=== PATIENT | female | born 1980 | race Caucasian/White ===

== ENCOUNTER 2020-05-25 22:25 | Inpatient (IN) | payer MEDICAID, OTHER ==
[~2020-05-25] VITALS: Ht 167.6 cm; Wt 108.9 kg
[2020-05-25] MEDS ORDERED: ASPIRIN 81MG TABLET PO ONE (23:15)
[2020-05-25] MEDS ORDERED: DEXAMETHASONE 4MG/ML 1ML VIAL IV ONE (23:30)
[2020-05-26 00:21] LABS: HEMATOCRIT. 44.3 % (36.0-48.0); HEMOGLOBIN. 14.1 g/dL (12.0-16.0); MEAN CORPUSCULAR VOLUME 78.6 fL (81.0-99.0); MEAN PLATELET VOLUME 8.1 fl (7.4-10.4); PLATELET 232 x1000/uL (130-400); RED BLOOD CELL COUNT 5.64 mill/uL (4.2-5.4); RED CELL DISTRIBUTION WIDTH 16.8 % (11.6-14.6)
[2020-05-26 00:28] LABS: CHLORIDE 99 mEq/L (98-107)
[2020-05-26] MEDS ORDERED: SODIUM CHLORIDE 0.9% 1000ML BAG (SEPSIS BOLUS) IV ONE (01:00)
[2020-05-26] MEDS ORDERED: ASPIRIN 81MG TABLET PO ONE (01:00)
[2020-05-26 01:54] LABS: PARTIAL THROMBOPLASTIN TIME 23.4 sec (23.4-31.0); PROTHROMBIN TIME 10.8 sec (9.6-11.0)
[2020-05-26] MEDS ORDERED: ENOXAPARIN 120MG/0.8ML SYR SUBCUT NR (02:00)
[2020-05-26] MEDS ORDERED: AZITHROMYCIN 500 MG in DEXT 5% WATER 250 ML IV NR (02:00)
[2020-05-26] MEDS ORDERED: CEFTRIAXONE 1 G PREMIX 50 ML IV NR (03:00)
[2020-05-26 03:02] LABS: ATYPICAL LYMPHOCYTES 2; NUCLEATED RED BLOOD CELLS 2 /100 WBC; PLATELET ESTIMATE NORMAL
[2020-05-26] MEDS ORDERED: BENZONATATE 100MG CAPSULE PO PRN (09:00)
[2020-05-26] MEDS ORDERED: ONDANSETRON HCL 4MG/2ML INJ IV PRN (09:00)
[2020-05-26] MEDS: ASPIRIN 81MG TABLET PO SCH (09:00)
[2020-05-26] MEDS: DEXAMETHASONE 4MG/ML 1ML VIAL IV SCH (09:39)
[2020-05-26] MEDS: PIPERACILLIN/TAZOBACTAM 3.375 G in DEXT 5% WATER 100 ML IV SCH ×3 (11:30→21:00)
[2020-05-26] MEDS ORDERED: ALBUTEROL 6.7GM HFA INHALER ORI PRN (19:15)
[2020-05-26] MEDS ORDERED: FUROSEMIDE 20MG/2ML VIAL IVP NR (19:30)
[2020-05-26] MEDS: ENOXAPARIN 30MG/0.3ML SYR SUBCUT SCH (21:00)
[2020-05-26 22:52] LABS: BG BASE EXCESS 2.8 mmol/L (-2.0-2.0); BG CARBOXYHEMOGLOBIN 0.3 % (0.5-1.5); BG DEOXYHEMOGLOBIN 6.2 % (0.0-5.0); BG FRACTION INSPIRED OXYGEN 100; BG HCO3 ACT 25.6 mmol/L (22.0-26.0); BG METHEMOGLOBIN 0.2 % (0.0-1.5); BG OXYGEN SATURATION 93.8 % (92.0-98.5); BG OXYHEMOGLOBIN 93.3 % (94.0-97.0); BG PCO2 33.7 mmHg (35.0-45.0); BG PH 7.498 (7.350-7.450); BG PO2 69.3 mmHg (75.0-100.0); BG TOTAL HEMOGLOBIN 13.3 g/dL (12.0-18.0); BG VENT MODE MASK - NRB
[2020-05-27] MEDS: PIPERACILLIN/TAZOBACTAM 3.375 G in DEXT 5% WATER 100 ML IV SCH ×3 (03:00→21:36)
[2020-05-27 05:28] LABS: BASOPHILS % 0.3 % (0.0-2.0); HEMATOCRIT. 37.6 % (36.0-48.0); HEMOGLOBIN. 12.2 g/dL (12.0-16.0); LYMPHOCYTES % 8.6 % (20.0-50.0); MEAN CORPUSCULAR HEMOGLOBIN 24.8 pg (28.0-32.0); MEAN CORPUSCULAR VOLUME 76.7 fL (81.0-99.0); MEAN PLATELET VOLUME 8.4 fl (7.4-10.4); MONOCYTES % 7.2 % (2.0-8.0); NEUTROPHILS % 83.9 % (40.0-76.0); PLATELET 242 x1000/uL (130-400); RED BLOOD CELL COUNT 4.91 mill/uL (4.2-5.4); RED CELL DISTRIBUTION WIDTH 16.3 % (11.6-14.6)
[2020-05-27 05:37] LABS: CHLORIDE 104 mEq/L (98-107)
[2020-05-27 08:03] LABS: BG BASE EXCESS 5.2 mmol/L (-2.0-2.0); BG CARBOXYHEMOGLOBIN 0.3 % (0.5-1.5); BG DEOXYHEMOGLOBIN 5.8 % (0.0-5.0); BG HCO3 ACT 28.6 mmol/L (22.0-26.0); BG METHEMOGLOBIN 0.3 % (0.0-1.5); BG OXYGEN SATURATION 94.2 % (92.0-98.5); BG OXYHEMOGLOBIN 93.6 % (94.0-97.0); BG PCO2 38.1 mmHg (35.0-45.0); BG PH 7.494 (7.350-7.450); BG PO2 70.6 mmHg (75.0-100.0); BG SAMPLE SITE LEFT RADIAL; BG TOTAL HEMOGLOBIN 13.5 g/dL (12.0-18.0); BG VENT MODE MASK - NRB
[2020-05-27] MEDS ORDERED: DEXTROSE 50% WATER 50ML SYRINGE IV PRN (08:45)
[2020-05-27 10:25] VITALS: BP 143/95
[2020-05-27 12:00] VITALS: BP 153/87
[2020-05-27] MEDS: BLOOD SUGAR DIAGNOSTIC STRIP TEST SCH ×3 (12:40→21:36)
[2020-05-27] MEDS: ASPIRIN 81MG TABLET PO SCH (14:56)
[2020-05-27] MEDS: ENOXAPARIN 30MG/0.3ML SYR SUBCUT SCH ×2 (14:57→21:34)
[2020-05-27] MEDS: DEXAMETHASONE 4MG/ML 1ML VIAL IV SCH (14:58)
[2020-05-27] MEDS: INSULIN LISPRO 100 UNITS/ML SUBCUT SCH ×3 (15:00→21:35)
[2020-05-27 16:00] VITALS: BP_SYST 152; BP_SYST 153; BP_DIAS 95; BP_DIAS 96
[2020-05-27 20:00] VITALS: BP 151/96
[2020-05-27] MEDS: ACETAMINOPHEN 325MG TABLET PO PRN (21:35)
[2020-05-28] VITALS: BP 139/100
[2020-05-28 04:00] VITALS: BP 130/94
[2020-05-28] MEDS: PIPERACILLIN/TAZOBACTAM 3.375 G in DEXT 5% WATER 100 ML IV SCH ×4 (05:26→22:20)
[2020-05-28 05:42] LABS: CHLORIDE 103 mEq/L (98-107)
[2020-05-28 06:08] LABS: BASOPHILS % 0.2 % (0.0-2.0); EOSINOPHILS % 0.1 % (0.0-5.0); HEMATOCRIT. 36.9 % (36.0-48.0); HEMOGLOBIN. 11.8 g/dL (12.0-16.0); LYMPHOCYTES % 9.5 % (20.0-50.0); MEAN CORPUSCULAR HEMOGLOBIN 24.8 pg (28.0-32.0); MEAN CORPUSCULAR VOLUME 77.9 fL (81.0-99.0); MEAN PLATELET VOLUME 8.9 fl (7.4-10.4); MONOCYTES % 6.2 % (2.0-8.0); PLATELET 234 x1000/uL (130-400); RED BLOOD CELL COUNT 4.73 mill/uL (4.2-5.4); RED CELL DISTRIBUTION WIDTH 16.3 % (11.6-14.6)
[2020-05-28] MEDS: BLOOD SUGAR DIAGNOSTIC STRIP TEST SCH ×4 (07:32→21:41)
[2020-05-28 08:00] VITALS: BP 142/86
[2020-05-28] MEDS: ASPIRIN 81MG TABLET PO SCH (08:15)
[2020-05-28] MEDS: DEXAMETHASONE 4MG/ML 1ML VIAL IV SCH (08:16)
[2020-05-28] MEDS: INSULIN LISPRO 100 UNITS/ML SUBCUT SCH ×4 (08:18→22:16)
[2020-05-28 12:00] VITALS: BP 136/91
[2020-05-28] MEDS: ENOXAPARIN 30MG/0.3ML SYR SUBCUT SCH ×2 (15:10→22:15)
[2020-05-28 20:00] VITALS: BP 164/100
[2020-05-29] VITALS: BP 135/89
[2020-05-29 04:00] VITALS: BP 133/80
[2020-05-29 08:00] VITALS: BP 139/78
[2020-05-29] MEDS: BLOOD SUGAR DIAGNOSTIC STRIP TEST SCH ×4 (08:09→21:07)
[2020-05-29] MEDS: ASPIRIN 81MG TABLET PO SCH (08:11)
[2020-05-29] MEDS: INSULIN LISPRO 100 UNITS/ML SUBCUT SCH ×4 (08:51→21:07)
[2020-05-29] MEDS: DEXAMETHASONE 4MG/ML 1ML VIAL IV SCH (08:52)
[2020-05-29] MEDS: ENOXAPARIN 30MG/0.3ML SYR SUBCUT SCH ×2 (08:53→21:07)
[2020-05-29 12:00] VITALS: BP 129/92
[2020-05-29 16:00] VITALS: BP 145/83
[2020-05-29] MEDS: INSULIN GLARGINE UD 100 UNITS/ML SYR SUBCUT SCH (23:51)
[2020-05-30] VITALS: BP 140/74
[2020-05-30] MEDS: BLOOD SUGAR DIAGNOSTIC STRIP TEST SCH ×4 (07:01→21:45)
[2020-05-30 08:00] VITALS: BP 134/70
[2020-05-30] MEDS: DEXAMETHASONE 4MG/ML 1ML VIAL IV SCH (08:44)
[2020-05-30] MEDS: ASPIRIN 81MG TABLET PO SCH (08:44)
[2020-05-30] MEDS: ENOXAPARIN 30MG/0.3ML SYR SUBCUT SCH ×2 (08:44→21:50)
[2020-05-30] MEDS: INSULIN LISPRO 100 UNITS/ML SUBCUT SCH ×4 (08:50→21:52)
[2020-05-30] MEDS: INSULIN GLARGINE UD 100 UNITS/ML SYR SUBCUT SCH ×2 (10:01→21:54)
[2020-05-30 16:00] VITALS: BP 129/80
[2020-05-30 20:00] VITALS: BP 120/77
[2020-05-31] VITALS: BP 131/72
[2020-05-31 08:00] VITALS: BP 132/84
[2020-05-31] MEDS: INSULIN LISPRO 100 UNITS/ML SUBCUT SCH ×4 (08:10→21:56)
[2020-05-31] MEDS: BLOOD SUGAR DIAGNOSTIC STRIP TEST SCH ×4 (08:17→21:50)
[2020-05-31] MEDS: ENOXAPARIN 30MG/0.3ML SYR SUBCUT SCH ×2 (09:00→21:55)
[2020-05-31] MEDS: ASPIRIN 81MG TABLET PO SCH (09:00)
[2020-05-31] MEDS: DEXAMETHASONE 4MG/ML 1ML VIAL IV SCH (09:00)
[2020-05-31] MEDS: INSULIN GLARGINE UD 100 UNITS/ML SYR SUBCUT SCH ×2 (10:41→21:57)
[2020-05-31 16:00] VITALS: BP 128/74
[2020-06-01] VITALS: BP 117/79
[2020-06-01 04:00] VITALS: BP 126/69
[2020-06-01] MEDS: BLOOD SUGAR DIAGNOSTIC STRIP TEST SCH ×4 (06:34→21:48)
[2020-06-01 08:00] VITALS: BP 103/63
[2020-06-01] MEDS: INSULIN LISPRO 100 UNITS/ML SUBCUT SCH ×4 (08:10→21:48)
[2020-06-01] MEDS: ASPIRIN 81MG TABLET PO SCH (10:44)
[2020-06-01] MEDS: DEXAMETHASONE 4MG/ML 1ML VIAL IV SCH (10:44)
[2020-06-01] MEDS: INSULIN GLARGINE UD 100 UNITS/ML SYR SUBCUT SCH ×2 (10:45→21:48)
[2020-06-01 12:00] VITALS: BP 111/80
[2020-06-01] MEDS: ENOXAPARIN 30MG/0.3ML SYR SUBCUT SCH ×2 (12:44→21:50)
[2020-06-01 16:00] VITALS: BP 110/63
[2020-06-01 20:00] VITALS: BP 123/65
[2020-06-02] VITALS: BP 116/72
[2020-06-02 04:00] VITALS: BP 120/78
[2020-06-02] MEDS: BLOOD SUGAR DIAGNOSTIC STRIP TEST SCH ×3 (07:26→21:08)
[2020-06-02 08:00] VITALS: BP 107/69
[2020-06-02] MEDS: INSULIN LISPRO 100 UNITS/ML SUBCUT SCH ×3 (08:10→21:09)
[2020-06-02] MEDS: ENOXAPARIN 30MG/0.3ML SYR SUBCUT SCH ×2 (09:00→21:10)
[2020-06-02] MEDS: ASPIRIN 81MG TABLET PO SCH (10:32)
[2020-06-02] MEDS: DEXAMETHASONE 4MG/ML 1ML VIAL IV SCH (10:33)
[2020-06-02] MEDS: INSULIN GLARGINE UD 100 UNITS/ML SYR SUBCUT SCH ×2 (12:37→22:17)
[2020-06-02 13:18] LABS: BG BASE EXCESS 6.3 mmol/L (-2.0-2.0); BG CARBOXYHEMOGLOBIN 0.6 % (0.5-1.5); BG DEOXYHEMOGLOBIN 11.4 % (0.0-5.0); BG HCO3 ACT 30.6 mmol/L (22.0-26.0); BG METHEMOGLOBIN 0.2 % (0.0-1.5); BG OXYGEN SATURATION 88.5 % (92.0-98.5); BG OXYHEMOGLOBIN 87.8 % (94.0-97.0); BG PCO2 42.6 mmHg (35.0-45.0); BG PH 7.474 (7.350-7.450); BG PO2 53.4 mmHg (75.0-100.0); BG SAMPLE SITE RIGHT RADIAL; BG TOTAL HEMOGLOBIN 13.8 g/dL (12.0-18.0); BG VENT MODE ROOM AIR
[2020-06-02 20:00] VITALS: BP 123/76
[2020-06-03] VITALS: BP 108/58
[2020-06-03 04:00] VITALS: BP 123/79
[2020-06-03] MEDS: BLOOD SUGAR DIAGNOSTIC STRIP TEST SCH ×4 (07:40→21:00)
[2020-06-03 08:00] VITALS: BP 102/56
[2020-06-03] MEDS: INSULIN LISPRO 100 UNITS/ML SUBCUT SCH ×4 (08:10→22:16)
[2020-06-03] MEDS: DEXAMETHASONE 4MG/ML 1ML VIAL IV SCH (09:30)
[2020-06-03] MEDS: ENOXAPARIN 30MG/0.3ML SYR SUBCUT SCH ×2 (09:30→22:16)
[2020-06-03] MEDS: ASPIRIN 81MG TABLET PO SCH (09:31)
[2020-06-03] MEDS: INSULIN GLARGINE UD 100 UNITS/ML SYR SUBCUT SCH ×2 (09:31→22:45)
[2020-06-03 12:00] VITALS: BP 114/60
[2020-06-03 16:00] VITALS: BP 119/61
[2020-06-03 20:00] VITALS: BP 120/70
[2020-06-04] VITALS: BP 121/74
[2020-06-04] MEDS: ACETAMINOPHEN 325MG TABLET PO PRN (01:55)
[2020-06-04 04:00] VITALS: BP 120/60
[2020-06-04 06:33] LABS: HEMATOCRIT. 39.3 % (36.0-48.0); HEMOGLOBIN. 12.6 g/dL (12.0-16.0); MEAN CORPUSCULAR HEMOGLOBIN 25.1 pg (28.0-32.0); MEAN CORPUSCULAR VOLUME 78.1 fL (81.0-99.0); MEAN PLATELET VOLUME 8.6 fl (7.4-10.4); PLATELET 322 x1000/uL (130-400); RED BLOOD CELL COUNT 5.04 mill/uL (4.2-5.4); RED CELL DISTRIBUTION WIDTH 16.3 % (11.6-14.6)
[2020-06-04 06:58] LABS: CHLORIDE 106 mEq/L (98-107)
[2020-06-04] MEDS: BLOOD SUGAR DIAGNOSTIC STRIP TEST SCH ×2 (07:40→12:40)
[2020-06-04 08:00] VITALS: BP 126/60
[2020-06-04] MEDS: INSULIN LISPRO 100 UNITS/ML SUBCUT SCH ×2 (08:10→13:10)
[2020-06-04] MEDS: ASPIRIN 81MG TABLET PO SCH (09:00)
[2020-06-04] MEDS: DEXAMETHASONE 4MG/ML 1ML VIAL IV SCH (09:56)
[2020-06-04] MEDS: ENOXAPARIN 30MG/0.3ML SYR SUBCUT SCH (09:57)
[2020-06-04] MEDS: INSULIN GLARGINE UD 100 UNITS/ML SYR SUBCUT SCH (09:57)
[2020-06-04 12:00] VITALS: BP 129/61
[2020-06-04 15:55] VITALS: BP 123/62
[2020-06-04 15:57] VITALS: BP 126/62
[2020-06-04 23:33] LABS: PLATELET ESTIMATE NORMAL
== END 2020-06-04 16:44 | disposition home or self-care (01) | DRG 720 ==
LOC: ER 22:25 → MICUSO 05-26 02:49 → 7WST 05-27 08:37
PROVIDERS: ADMIT Internal Medicine; ATTEND Internal Medicine
PROC: 5A09357 Assistance with Respiratory Ventilation, Less than 24 Consecutive Hours, Continuous Positive Airway Pressure (ICD-10-PCS; principal; 2020-05-25)
DX: A41.89 Other specified sepsis (principal); I21.4 Non-ST elevation (NSTEMI) myocardial infarction; J96.01 Acute respiratory failure with hypoxia; J12.82 Pneumonia due to coronavirus disease 2019; E43 Unspecified severe protein-calorie malnutrition; B97.89 Other viral agents as the cause of diseases classified elsewhere; E11.9 Type 2 diabetes mellitus without complications; E66.9 Obesity, unspecified; E87.1 Hypo-osmolality and hyponatremia; E87.2 Acidosis; I11.9 Hypertensive heart disease without heart failure; R65.20 Severe sepsis without septic shock; U07.1 COVID-19; Z68.38 Body mass index [BMI] 38.0-38.9, adult
CPT/HCPCS: 36415; 36600; 71045; 80048; 80053; 82375; 82728; 82805; 82962; 83036; 83605; 83615; 83880; 84145; 84484; 85025; 85379; 86140; 87635; 93005; 94660; 99285; J0456; J0696; J1100; J1650; J1815; J1940; J2543; J7030; J7040; J7060